=== PATIENT | male | born 1940 | race Caucasian/White ===

== ENCOUNTER → 2023-06-09 06:19 | Outpatient (REF) | payer MEDICARE, BC, SELFPAY ==
[2023-06-09 10:06] LABS: % Basophils 0.5 % (0-2); % Eosinophils 6.3 % (0-6); % Immature Granulocytes 0.2 % (0-0.5); % Lymphocytes 28.3 % (20.5-51.1); % Monocytes 9.7 % (1.7-9.3); Absolute Eosinophils 0.4 10^3/uL (0-0.7); Absolute Lymphocytes 1.6 10^3/uL (1.2-3.4); Absolute Monocytes 0.5 10^3/uL (0.1-0.6); Absolute Neutrophils 3.1 10^3/uL (1.4-6.5); Hemoglobin 13.9 g/dL (13.0-18.0); Mean Corp Hgb Conc. 33.1 g/dL (33.0-37.0); Mean Corpuscular Hgb 29.8 pg (27.0-31.0); Mean Corpuscular Volume 90.1 fL (80.0-94.0); Mean Platelet Volume 9.7 fL (7.4-10.4); Nucleated Red Blood Cells % 0 % (-); Platelet Count 212 10^3/uL (130-400); Red Blood Cell Count 4.66 10^6/uL (4.70-6.10); Red Cell Dist. Width 12.3 % (11.5-14.5); White Blood Cell Count 5.6 10^3/uL (4.8-10.8)
[2023-06-09 11:04] LABS: ALT (SGPT) 18 U/L (0-50); AST (SGOT) 31 U/L (17-59); Alkaline Phosphatase 54 U/L (38-126); Blood Urea Nitrogen 19 mg/dl (9-20); Calcium 9.4 mg/dl (8.4-10.2); Carbon Dioxide 27 mmol/L (22-30); Chloride 107 mmol/L (98-107); Glucose 111 mg/dl (70-99); HDL Cholesterol 72 mg/dl; LDL Cholesterol, Calculated 50 mg/dl; Potassium 4.3 mmol/L (3.5-5.1); Sodium 141 mmol/L (135-145); Total Bilirubin 0.6 mg/dl (0.2-1.3); Total Cholesterol 134 mg/dl (50-199); Total Protein 6.5 g/dl (6.3-8.2); Triglyceride 60 mg/dl (10-149); Very Low Density Lipoprotein 12 mg/dl (0-30); eGFR > 60.00
[2023-06-09 11:33] LABS: Microalbumin, Random Urine 0.9 mg/dl (0.6-1.7); Microalbumin/creatinine Ratio 7.2 mg/g
[2023-06-09 11:35] LABS: PSA, Total - Diagnostic 4.78 ng/ml (0.0-4.0); TSH Reflex To Free T4 4.62 uIU/ml (0.47-4.68)
[2023-06-09 12:06] LABS: Glycohemoglobin (HgbA1c) 6.6 % (4.0-5.6)
== END ==
LOC: HWLAB 06:19
PROVIDERS: ATTENDING PHYSICIAN Advanced Practice Midwife; FAMILY PHYSICIAN Nurse Practitioner Family
DX: I10 Essential (primary) hypertension (principal); C61 Malignant neoplasm of prostate; E78.00 Pure hypercholesterolemia, unspecified; I25.10 Atherosclerotic heart disease of native coronary artery without angina pectoris; E11.9 Type 2 diabetes mellitus without complications; R42 Dizziness and giddiness; K22.70 Barrett's esophagus without dysplasia
CPT/HCPCS: 36415; 80053; 80061; 82043; 82570; 83036; 84153; 84443; 85025

== ENCOUNTER 2023-11-11 07:02 | Emergency (ER) | payer MEDICARE, BC, SELFPAY ==
[2023-11-11 07:04] VITALS: BP 171/79
--- NOTE | 2023-11-11 08:00 | ED.GENMED ---
History of Present Illness
General
Chief Complaint: Musculo-Skeletal Complaint
Time Seen by Provider: 11/11/23 07:16
History of Present Illness
History of Present Illness:
83-year-old male with history of coronary artery disease, hypertension, and hyperlipidemia presents to the emergency department for evaluation of bilateral lower extremity discomfort and achiness that began approximate 2 weeks ago. Symptoms are
resolved while he is at rest, states he feels them the moment he stands up but they do seem to improve as he walks. He is concerned that after applying insecticide product liberally on his living carpet he may be absorbing some of this
systemically. He denies any pain or numbness at rest. Denies any loss of bladder or bowel function.
Past History
Past History
ED Past Medical History: CAD, GERD (barretts), HTN and Hypercholesterolemia
ED Past Surgical History: Cardiac (cath w/ stents) and Orthopedic
Social History
Personal:
Living: with family
Employment: Retired
Review of Systems
Review of Systems
Allergies reviewed?: Yes
All Other Systems: ROS reviewed and negative except as documented in HPI and ROS
Phy Exam
Physical Exam
Physical Exam:
GEN: Well appearing, NAD, WDWN
HEENT: Oral mucosa moist, no scleral icterus
Cardiac: Regular rate and rhythm, no murmurs
Lung: No respiratory distress, no tachypnea
MSK: No gross deformity or injuries. No lower extremity edema, calf compartments are soft and nontender bilaterally. Dorsalis pedis and posterior tibialis pulses are 2+ and symmetric bilaterally, sensation to the feet is intact in all graves
Skin: Good color, no pallor or jaundice, no rashes
Neuro: AO x3, moves all extremities freely
Psych: Calm, cooperative
Course
Orders/Labs/Results
Orders:
Orders
11/11/23 07:44
CR Lumbar Spine Comp Min 4 Vw* Urgent
Comment:
Reason For Exam: BLE radiculopathy
Vital Signs
Initial and Last Documented VS:
Initial Vital Signs
Temp Pulse Resp BP Pulse Ox
98.1 F 73 18 171/79 99
11/11/23 07:04 11/11/23 07:04 11/11/23 07:04 11/11/23 07:04 11/11/23 07:04
Last Documented Vital Signs
Temp Pulse Resp BP Pulse Ox
98.1 F 79 20 157/78 97
11/11/23 07:04 11/11/23 09:05 11/11/23 09:05 11/11/23 09:05 11/11/23 09:05
MDM/Problems Addressed
MDM/Problems Addressed:
I suspect patient's symptoms are neurogenic claudication evidenced by the resolution at rest. He has no vascular claudication symptoms as he is able to ambulate with improvement and he has strong bilateral lower extremity pulses. No edema to
suggest a DVT. Will treat him with a course of corticosteroids and recommend primary care follow-up to discuss lumbar MRI
*Critical Care Note
Total Time (30-74mins, 75-104mins- exclusive of procedures): Not Applicable
ED Attending Note
-
Portions of this chart may have been created with voice recognition software.� Occasional wrong word or��sound alike� substitutions may have occurred due to the inherent limitations of voice recognition software.
Discharge Plan
Departure
Patient Disposition: Home (Routine Discharge)
Date of Disposition: 11/11/23
Time of Disposition: 09:08
Patient with high blood pressure during this ER visit?: No
Discharge Problem:
Neurogenic claudication
Prescriptions:
New
methylprednisolone [Medrol (Juan)] 4 mg tablets,dose pack
See Rx Instructions .ROUTE .COMPLEX Qty: 21 0RF
Rx Instructions:
orally per package directions
No Action
aspirin 81 MG tablet,chewable
81 mg PO DAILY
lisinopril [Prinivil] 20 MG tablet
10 mg PO DAILY
dexlansoprazole [Dexilant] 30 MG capsule,biphase delayed releas
60 mg PO DAILY
rosuvastatin [Crestor] 40 MG tablet
20 mg PO QPM Qty: 30 3RF
nitroglycerin 0.4 MG tablet, sublingual
0.4 mg sublingual PRN PRN (Reason: cp)
prednisone 10 mg Tablet
See Rx Instructions .ROUTE .COMPLEX Qty: 30 0RF
Rx Instructions:
Take By Mouth:
40 mg daily x3 days, 30 mg daily x3 days,
20 mg daily x3 days, 10 mg daily x3 days.
Referrals:
Maci Polanco MD [Family Provider] -
Activity Restrictions/Additional Instructions:
Ask your doctor about a low back MRI if the steroids do not help
Interventions
Interventions:
*Risk Screen - Suicide Last Done: 11/11/23 07:04
*General Assessment Last Done: 11/11/23 07:04
*Neglect/Abuse Screening Last Done: 11/11/23 07:04
*ED COVID-19 Vaccine History Last Done: 11/11/23 08:30
*Nursing Disposition Last Done: 11/11/23 09:13
ED-Musculoskeletal Assessment Last Done: 11/11/23 08:30
Discharge Date and Time
Discharge Date/Time: 11/11/23 09:14
Print Language: FAROESE
[2023-11-11 09:05] VITALS: BP 157/78
== END 2023-11-11 09:14 | disposition home or self-care (01) ==
LOC: EMR 07:02
PROVIDERS: EMERGENCY PHYSICIAN Emergency Medicine; FAMILY PHYSICIAN Internal Medicine
DX: M79.605 Pain in left leg (principal); M79.604 Pain in right leg; I87.8 Other specified disorders of veins; I25.10 Atherosclerotic heart disease of native coronary artery without angina pectoris; I10 Essential (primary) hypertension; E78.00 Pure hypercholesterolemia, unspecified; K21.9 Gastro-esophageal reflux disease without esophagitis; K22.70 Barrett's esophagus without dysplasia; Z95.5 Presence of coronary angioplasty implant and graft; Z79.82 Long term (current) use of aspirin; Z88.1 Allergy status to other antibiotic agents; Z88.3 Allergy status to other anti-infective agents; Z88.0 Allergy status to penicillin; Z88.2 Allergy status to sulfonamides; Z88.8 Allergy status to other drugs, medicaments and biological substances
CPT/HCPCS: 99283; 72110

== ENCOUNTER → 2023-12-14 06:06 | Outpatient (REF) | payer MEDICARE, BC, SELFPAY ==
[2023-12-14 09:36] LABS: % Basophils 0.7 % (0-2); % Eosinophils 4.6 % (0-6); % Immature Granulocytes 0.2 % (0-0.5); % Monocytes 10.6 % (1.7-9.3); % Neutrophils 57.9 % (42.2-75.2); Absolute Eosinophils 0.3 10^3/uL (0-0.7); Absolute Lymphocytes 1.5 10^3/uL (1.2-3.4); Absolute Monocytes 0.6 10^3/uL (0.1-0.6); Absolute Neutrophils 3.3 10^3/uL (1.4-6.5); Hematocrit 40.7 % (39.0-52.0); Mean Corp Hgb Conc. 34.4 g/dL (33.0-37.0); Mean Corpuscular Hgb 29.7 pg (27.0-31.0); Mean Corpuscular Volume 86.2 fL (80.0-94.0); Mean Platelet Volume 9.5 fL (7.4-10.4); Nucleated Red Blood Cells % 0 % (-); Platelet Count 211 10^3/uL (130-400); Red Blood Cell Count 4.72 10^6/uL (4.70-6.10); Red Cell Dist. Width 12.5 % (11.5-14.5); White Blood Cell Count 5.7 10^3/uL (4.8-10.8)
[2023-12-14 09:43] LABS: ALT (SGPT) 21 U/L (0-50); AST (SGOT) 34 U/L (17-59); Alkaline Phosphatase 45 U/L (38-126); Blood Urea Nitrogen 16 mg/dl (9-20); Calcium 8.9 mg/dl (8.4-10.2); Carbon Dioxide 25 mmol/L (22-30); Chloride 107 mmol/L (98-107); Glucose 111 mg/dl (70-99); HDL Cholesterol 72 mg/dl; LDL Cholesterol, Calculated 57 mg/dl; Potassium 4.2 mmol/L (3.5-5.1); Sodium 144 mmol/L (135-145); Total Bilirubin 0.6 mg/dl (0.2-1.3); Total Cholesterol 142 mg/dl (50-199); Total Protein 6.5 g/dl (6.3-8.2); Triglyceride 67 mg/dl (10-149); Very Low Density Lipoprotein 13 mg/dl (0-30); eGFR > 60.00
[2023-12-14 10:52] LABS: Glycohemoglobin (HgbA1c) 6.4 % (4.0-5.6)
[2023-12-14 12:05] LABS: Microalbumin, Random Urine <0.6 mg/dl (0.6-1.7)
[2023-12-14 12:09] LABS: PSA, Total - Diagnostic 5.54 ng/ml (0.0-4.0); TSH Reflex To Free T4 5.49 uIU/ml (0.47-4.68)
[2023-12-14 12:37] LABS: Free T4 0.89 ng/dl (0.78-2.19)
== END ==
LOC: HWLAB 06:06
PROVIDERS: ATTENDING PHYSICIAN Advanced Practice Midwife; FAMILY PHYSICIAN Nurse Practitioner Family
DX: C61 Malignant neoplasm of prostate (principal); E78.00 Pure hypercholesterolemia, unspecified; I25.10 Atherosclerotic heart disease of native coronary artery without angina pectoris; I10 Essential (primary) hypertension; E11.9 Type 2 diabetes mellitus without complications
CPT/HCPCS: 36415; 80053; 80061; 82043; 82570; 83036; 84153; 84439; 84443; 85025

== ENCOUNTER → 2024-01-19 06:28 | Outpatient (REF) | payer MEDICARE, BC, SELFPAY | LOC: RAD 06:28 | PROVIDERS: ATTENDING PHYSICIAN Specialist; FAMILY PHYSICIAN Internal Medicine | DX: D29.4 Benign neoplasm of scrotum (principal) | CPT/HCPCS: 72192 ==

== ENCOUNTER → 2024-02-27 12:56 | Outpatient (REF) | payer MEDICARE, SELFPAY | LOC: HWRCS 12:56 | PROVIDERS: ATTENDING PHYSICIAN Internal Medicine Interventional Cardiology; FAMILY PHYSICIAN Internal Medicine | DX: I35.0 Nonrheumatic aortic (valve) stenosis (principal) | CPT/HCPCS: 93306 ==

== ENCOUNTER 2024-04-05 06:23 | Day surgery (SDC) | payer MEDICARE, BC, SELFPAY ==
[2024-03-29 13:42] VITALS: BMI 25.0
[2024-04-05] VITALS (8 sets, daily range): BP systolic 128–157; BP diastolic 67–92; BMI 25.0
[2024-04-05] MEDS: NORMOSOL-R/PLASMALYTE-A 1000 IV (08:59)
[2024-04-05] MEDS: FLOMAX 0.4 MG PO (13:22)
== END 2024-04-05 14:00 | disposition home or self-care (01) ==
LOC: SDS 06:23
PROVIDERS: ATTENDING PHYSICIAN Specialist; FAMILY PHYSICIAN Internal Medicine
DX: N43.3 Hydrocele, unspecified (principal); N44.2 Benign cyst of testis
CPT/HCPCS: 54530; 55040; 88302; 88305

== ENCOUNTER → 2024-05-11 06:15 | Outpatient (REF) | payer MEDICARE, BC, SELFPAY ==
[2024-05-11 10:42] LABS: PSA, Total - Diagnostic 5.15 ng/ml (0.0-4.0)
== END ==
LOC: HWLAB 06:15
PROVIDERS: ATTENDING PHYSICIAN Advanced Practice Midwife; FAMILY PHYSICIAN Internal Medicine
DX: C61 Malignant neoplasm of prostate (principal)
CPT/HCPCS: 36415; 84153

== ENCOUNTER → 2024-05-15 17:30 | Outpatient (REF) | payer MEDICARE, BC, SELFPAY | LOC: MRI 3T 17:30 | PROVIDERS: ATTENDING PHYSICIAN Advanced Practice Midwife; FAMILY PHYSICIAN Internal Medicine | DX: C61 Malignant neoplasm of prostate (principal) | CPT/HCPCS: 72197; A9575 ==

== ENCOUNTER 2024-05-18 05:56 | Emergency (ER) | payer MEDICARE, BC, SELFPAY ==
[2024-05-18 06:06] VITALS: BP 146/82
--- NOTE | 2024-05-18 06:12 | ED.GENMED ---
History of Present Illness
General
Chief Complaint: Chest Pain
Time Seen by Provider: 05/18/24 06:12
History of Present Illness
History of Present Illness:
TIME OF INITIAL ENCOUNTER: 6:20 AM
HPI: Yesterday, the patient started having right-sided chest discomfort described as sharp and stabbing. It is primarily in the lower anterolateral aspect of the right chest. This occurs approximately every 90 seconds and just lasts for a few
seconds at a time. There is no shortness of breath. Currently, he feels fine. He does have coronary disease with stenting placed in 2016. He also was concerned because he had a contrast-enhanced MRI related to prostate cancer yesterday and his
symptoms started after that was obtained. He has had some constipation as well.
EXAM:
GENERAL: Well appearing in no distress
HEENT: Moist oral mucosa
CARDIOVASCULAR: 2/ systolic murmur, normal heart rate, regular rhythm, No chest wall tenderness
PULMONARY: No respiratory distress, breath sounds are clear and equal
ABDOMEN: Soft with no peritoneal signs, no tenderness
NEUROLOGIC: Excellent strength all extremities, no coordination deficits
PSYCHIATRIC: Appropriate mental status, normal insight and judgement
EXTREMITIES: Nontender, no edema, moves all extremities equally
SKIN: No rash, no lesions
NUMBER AND COMPLEXITY OF PROBLEMS ADDRESSED AT THE ENCOUNTER
� Chronic conditions affecting care: CAD with coronary stents, high blood pressure, hyperlipidemia, prediabetes
� Acute Exacerbation and/or Progression of Chronic Illness: This is an acute problem
� Differential Diagnosis includes: Chest wall pain, muscle spasm, very low suspicion for ACS, very low suspicion that this is related to contrast-enhanced MRI
AMOUNT AND/OR COMPLEXITY OF DATA TO BE REVIEWED AND ANALYZED
� I performed an independent evaluation of and my interpretation is:
EKG: Sinus 60, nonspecific ST abnormality, no significant change from 03/29/2024
CT:
X-rays:
Laboratory Studies: Troponin less than 0.012, CBC and chemistries also unremarkable
Other:
� Review of other/old records: Echo from 02/27/2024 showed moderate aortic stenosis
� Clinical information was obtained by an independent historian: I spoke to the at bedside
� Prescriptions/Medications Considered but not given:
� Further testing considered but not performed: Did not perform chest x-ray as he has no symptoms current
RISK OF COMPLICATIONS AND/OR MORBIDITY OR MORTALITY OF PATIENT MANAGEMENT
� Social determinants of health affecting care: Lives at home
� Discussion with other providers:
� Escalation of care including admission/observation vs risk of discharge considered: The patient is very well-appearing currently with an unremarkable EKG and currently no symptoms. Symptom started yesterday and is rather
atypical for coronary etiology of his pain.
ANY OTHER UPDATES:
7:10 AM: I reassessed patient. The patient continues to have no pain. The patient does have a history of coronary disease�I do recommend that he follows up with his electrical systems design engineer however very low suspicion for ACS at this time. He also states that
he has had episodes of coughing related to having 'food stuck in my throat and postnasal drip'. However he has not been recently coughing.
Past History
Past History
ED Past Medical History: CAD, GERD (barretts), HTN and Hypercholesterolemia
ED Past Surgical History: Cardiac (cath w/ stents) and Orthopedic
Social History
Personal:
Living: with family
Employment: Retired
Phy Exam
Physical Exam
Physical Exam:
See HPI
Scores
Heart Score for Chest Pain Patients
STEMI patient?: Not applicable
Course
Orders/Labs/Results
Orders:
Orders
05/18/24 05:57
EKG [Electrocardiogram (*1)] Urgent
Reason for Study: Chest Pain
Other Reason for Exam: r sided chest pain
EKG- Treatment ONCE
05/18/24 06:30
Complete Blood Count/With Diff Urgent
Comprehensive Metabolic Panel Urgent
Troponin I Urgent
Abnormal Lab Results
05/18/24
06:30
RBC 4.48 L 10^6/uL
(4.70-6.10)
Monocytes % 9.9 H %
(1.7-9.3)
Chloride 108 H mmol/L
(98-107)
Glucose 114 H mg/dl
(70-99)
Total Protein 6.0 L g/dl
(6.3-8.2)
05/18/24 06:30
05/18/24 06:30
Vital Signs
Initial and Last Documented VS:
Initial Vital Signs
Temp Pulse Resp BP Pulse Ox
36.6 C 62 16 146/82 97
05/18/24 06:06 05/18/24 06:06 05/18/24 06:06 05/18/24 06:06 05/18/24 06:06
Last Documented Vital Signs
Temp Pulse Resp BP Pulse Ox
36.6 C 62 16 146/82 98
05/18/24 06:06 05/18/24 06:06 05/18/24 06:06 05/18/24 06:06 05/18/24 06:15
*Critical Care Note
Total Time (30-74mins, 75-104mins- exclusive of procedures): Not Applicable
ED Attending Note
-
Portions of this chart may have been created with voice recognition software.� Occasional wrong word or��sound alike� substitutions may have occurred due to the inherent limitations of voice recognition software.
Discharge Plan
Departure
Patient Disposition: Home (Routine Discharge)
Date of Disposition: 05/18/24
Time of Disposition: 07:10
Patient with high blood pressure during this ER visit?: Yes
Discharge Problem:
Chest pain
Instructions: Chest Pain DCA Follow Up
Prescriptions:
No Action
aspirin 81 MG tablet,chewable
81 mg PO HS
dexlansoprazole [Dexilant] 30 MG capsule,biphase delayed releas
60 mg PO DAILY
nitroglycerin 0.4 MG tablet, sublingual
0.4 mg sublingual [id number] PRN (Reason: cp)
lisinopril 20 mg tablet
20 mg PO DAILY
cyanocobalamin (vitamin B-12) [Vitamin B-12] 1,000 mcg Tablet
1,000 mcg PO DAILY
amlodipine 2.5 mg Tablet
2.5 mg PO DAILY
fexofenadine [Kia] 180 mg Tablet
180 mg PO DAILY PRN (Reason: Seasonal Allergies)
rosuvastatin 20 mg tablet
20 mg PO HS
Referrals:
Maci Polanco MD [Family Provider] -
Activity Restrictions/Additional Instructions:
EKG and cardiac blood work showed no sign of heart attack. Your physical examination is unremarkable however I do note the murmur as you do have a history of aortic stenosis. Return here if worse or other concerns. You should also follow-up with
your electrical systems design engineer as well.
Interventions
Interventions:
*Risk Screen - Suicide Last Done: 05/18/24 06:06
*General Assessment Last Done: 05/18/24 06:15
*Neglect/Abuse Screening Last Done: 05/18/24 06:15
*ED- Fall Risk Assessment Last Done: 05/18/24 06:15
*ED COVID-19 Vaccine History Last Done: 05/18/24 06:15
ED- Cardiac Assessment Last Done: 05/18/24 06:15
Discharge Date and Time
Print Language: AMERICAN
[2024-05-18 06:15] VITALS: BMI 25.4
[2024-05-18 06:37] LABS: % Basophils 0.8 % (0-2); % Eosinophils 4.7 % (0-6); % Immature Granulocytes 0.2 % (0-0.5); % Lymphocytes 24.2 % (20.5-51.1); % Monocytes 9.9 % (1.7-9.3); % Neutrophils 60.2 % (42.2-75.2); Absolute Basophils 0.1 10^3/uL (0-0.2); Absolute Eosinophils 0.3 10^3/uL (0-0.7); Absolute Lymphocytes 1.6 10^3/uL (1.2-3.4); Absolute Monocytes 0.6 10^3/uL (0.1-0.6); Absolute Neutrophils 3.9 10^3/uL (1.4-6.5); Hematocrit 39.3 % (39.0-52.0); Hemoglobin 13.6 g/dL (13.0-18.0); Mean Corp Hgb Conc. 34.6 g/dL (33.0-37.0); Mean Corpuscular Hgb 30.4 pg (27.0-31.0); Mean Corpuscular Volume 87.7 fL (80.0-94.0); Mean Platelet Volume 8.8 fL (7.4-10.4); Nucleated Red Blood Cells % 0 % (-); Platelet Count 197 10^3/uL (130-400); Red Blood Cell Count 4.48 10^6/uL (4.70-6.10); Red Cell Dist. Width 12.5 % (11.5-14.5); White Blood Cell Count 6.5 10^3/uL (4.8-10.8)
[2024-05-18 06:52] LABS: ALT (SGPT) 19 U/L (0-50); AST (SGOT) 26 U/L (17-59); Albumin 3.7 g/dl (3.5-5.0); Alkaline Phosphatase 56 U/L (38-126); Blood Urea Nitrogen 12 mg/dl (9-20); Calcium 9.2 mg/dl (8.4-10.2); Carbon Dioxide 27 mmol/L (22-30); Chloride 108 mmol/L (98-107); Estimated Creatinine Clearance 81 ml/min; Glucose 114 mg/dl (70-99); Potassium 4.1 mmol/L (3.5-5.1); Sodium 142 mmol/L (135-145); Total Bilirubin 0.7 mg/dl (0.2-1.3); eGFR > 60.00
[2024-05-18 07:00] VITALS: BP 140/68
[2024-05-18 07:04] LABS: Troponin I < 0.012 ng/ml
== END 2024-05-18 07:34 | disposition home or self-care (01) ==
LOC: EMR 05:56
PROVIDERS: EMERGENCY PHYSICIAN Emergency Medicine; FAMILY PHYSICIAN Internal Medicine
DX: R07.89 Other chest pain (principal); I25.10 Atherosclerotic heart disease of native coronary artery without angina pectoris; I10 Essential (primary) hypertension; E78.00 Pure hypercholesterolemia, unspecified
CPT/HCPCS: 99284; 80053; 84484; 85025; 93005

== ENCOUNTER 2024-08-03 10:12 | Emergency (ER) | payer MEDICARE, BC, SELFPAY ==
[2024-08-03 10:15] VITALS: BP 161/81
--- NOTE | 2024-08-03 13:09 | ED.GENMED ---
History of Present Illness
General
Chief Complaint: Skin Surface Trauma
Source: patient
Exam Limitations: none
Time Seen by Provider: 08/03/24 11:06
Nursing documentation reviewed up to this point in time: agreed with
History of Present Illness
History of Present Illness:
Patient is a 4-year-old male with plain pickleball and fell landing on his hands and knees. He denies hitting his head he is on aspirin only. He denies any headache or neck pain. He complains of lacerations to bilateral hands and abrasion to
knee. He is unsure of his last tetanus shot. He denies any chest abdominal or back pain.
Past History
Past History
ED Past Medical History: CAD, GERD (barretts), HTN and Hypercholesterolemia
ED Past Surgical History: Cardiac (cath w/ stents) and Orthopedic
Social History
Personal:
Living: with family
Employment: Retired
Review of Systems
Review of Systems
Allergies reviewed?: Yes
All Other Systems: ROS reviewed and negative except as documented in HPI and ROS
Phy Exam
General Physical Exam
General Presentation: no apparent distress
General age: appears stated age
General Skin: warm and dry
General Habitus: normal
General Hydration: appears well hydrated
Neurological Exam
Neurological Exam: alert, oriented x3, no motor deficits and no sensory deficits
Musculoskeletal Exam
Musculoskeletal Exam: neuro vasc intact and other (Right upper extremity strong pulses+ skin tear to right thumb volar aspect proximal phalanx; L volar hand with + full-thickness laceration to subcutaneous tissue approximately 10 cm , + 4 cm lac to
volar left thumb prox phalynx no bony tenderness full flex/ext of all fingers. no tendon visible )
Skin Exam
Skin Exam: normal color and warm/dry
Psychiatric Exam
Psychiatric Exam: normal mood/affect
Course
Vital Signs
Initial and Last Documented VS:
Initial Vital Signs
Temp Pulse Resp BP Pulse Ox
98.2 F 66 16 161/81 99
08/03/24 10:15 08/03/24 10:15 08/03/24 10:15 08/03/24 10:15 08/03/24 10:15
Last Documented Vital Signs
Temp Pulse Resp BP Pulse Ox
98.2 F 66 16 161/81 99
08/03/24 10:15 08/03/24 10:15 08/03/24 10:15 08/03/24 10:15 08/03/24 10:15
Procedures
Laceration Closure
Right First Finger:
Status of Wound: clean (skin tear )
Size of Wound in cm: 3
Description of Wound Edges: flap-well vascularized
Preparation: cleaned with saline
Type of Closure: other (steri strips )
Left Finger:
Status of Wound: clean
Size of Wound in cm: 4
Description of Wound Edges: sharp
Preparation: cleaned with saline
Anesthesia: 1% Lidocaine
Revision/Debridement: routine- no revision
Type of Closure: single layer closure and interrupted sutures
Skin Closure Material: 4-0 nylon
Number of sutures: 3
Additional information:
Additional left hand laceration approximately 10 cm: Full-thickness through to subcutaneous tissue sutured with 9 sutures of 4.0 nylon simple interrupted
MDM/Problems Addressed
Differential Diagnosis Includes:
Not limited to laceration, contusion
MDM/Problems Addressed:
Patient is a 84-year-old male who was playing pickle ball slipped and fell landing on his hands and knees. He denies hitting his head he is on aspirin only no blood thinners denies any headache or neck pain. Patient has bilateral lacerations to
hands/fingers with no tendon deficit. Wounds repaired as documented. Patient has no bony tenderness good flexion extension of all fingers. Abrasion to knee not tender. Tetanus was updated. Wound care reviewed.
*Pulse Oximetry
SaO2: 99
Oxygen Mode of Delivery: Room air
Patient hypoxic: not evaluated
*Critical Care Note
Total Time (30-74mins, 75-104mins- exclusive of procedures): Not Applicable
ED Attending Note
-
Portions of this chart may have been created with voice recognition software.� Occasional wrong word or��sound alike� substitutions may have occurred due to the inherent limitations of voice recognition software.
Discharge Plan
Departure
Patient Disposition: Home (Routine Discharge)
Date of Disposition: 08/03/24
Time of Disposition: 13:16
Patient with high blood pressure during this ER visit?: Yes
Condition: Fair
Covid-19: Not Applicable
Discharge Problem:
Laceration, Abrasion
Instructions: Wound Care (DC), Laceration Repair With Stitches (DC), BLOOD PRESSURE
Prescriptions:
No Action
aspirin 81 MG tablet,chewable
81 mg PO HS
dexlansoprazole [Dexilant] 30 MG capsule,biphase delayed releas
60 mg PO DAILY
nitroglycerin 0.4 MG tablet, sublingual
0.4 mg sublingual [id number] PRN (Reason: cp)
lisinopril 20 mg tablet
20 mg PO DAILY
cyanocobalamin (vitamin B-12) [Vitamin B-12] 1,000 mcg Tablet
1,000 mcg PO DAILY
amlodipine 2.5 mg Tablet
2.5 mg PO DAILY
fexofenadine [Kia] 180 mg Tablet
180 mg PO DAILY PRN (Reason: Seasonal Allergies)
rosuvastatin 20 mg tablet
20 mg PO HS
Referrals:
Maci Polanco MD [Family Provider, Internal Medicine]
Activity Restrictions/Additional Instructions:
As discussed keep wound clean and dry for 24 hours after 24 hours lightly wet wounds and wash with soap and water twice a day pat dry.
For your right hand wound that had Steri-Strips to the area apply nonstick dressing do not apply antibiotic ointment. Trim steri stripsas needed but do not remove they will fall off on their own
For your left hand lacerations be sure to wash twice a day with soap and water pat dry and apply small layer of antibiotic to the area. Keep covered. See family doctor in 2 days for wound check and sutures are to be removed in 10-12 days.
Return if any signs of infection increased pain swelling redness transfer or chills.
Interventions
Interventions:
*General Assessment Last Done: 08/03/24 11:10
ED-Skin Assessment Last Done: 08/03/24 11:10
Discharge Date and Time
Print Language: OMANI
[2024-08-03] MEDS: ADACEL 0.5 ML IM (13:27)
[2024-08-03 13:36] VITALS: BP 130/70
== END 2024-08-03 14:57 | disposition home or self-care (01) ==
LOC: EMR 10:12
PROVIDERS: EMERGENCY PHYSICIAN Emergency Medicine; FAMILY PHYSICIAN Internal Medicine
DX: S61.412A Laceration without foreign body of left hand, initial encounter (principal); S61.011A Laceration without foreign body of right thumb without damage to nail, initial encounter; W18.39XA Other fall on same level, initial encounter; E78.00 Pure hypercholesterolemia, unspecified; I10 Essential (primary) hypertension; I25.10 Atherosclerotic heart disease of native coronary artery without angina pectoris; Z95.5 Presence of coronary angioplasty implant and graft; Z23 Encounter for immunization
CPT/HCPCS: 12005; 90471; 99282; 90715